=== PATIENT | female | born 1970 | race Caucasian/White ===

== ENCOUNTER → 2019-03-29 | Outpatient (CLI) | payer BC | LOC: M SLEEP HO 11:29 | PROVIDERS: ATTEND Nurse Practitioner Family | DX: R40.0 Somnolence (principal) ==

== ENCOUNTER → 2020-12-07 | Outpatient (REF) | payer BC ==
[2020-12-07 12:56] LABS: CORTISOL AM 18.7 UG/DL (4.3-22.4)
== END ==
LOC: M LAB REF 11:25
PROVIDERS: ATTEND Internal Medicine
DX: R53.83 Other fatigue (principal); L65.9 Nonscarring hair loss, unspecified

== ENCOUNTER → 2020-12-18 | Outpatient (CLI) | payer BC ==
--- NOTE | 2020-12-19 09:19 | REP ---
INDICATION: GOITOR COMPARISON: None. TECHNIQUE: Sales scale and color evaluation of the thyroid gland using the linear high frequency transducer. FINDINGS: The thyroid gland is relatively normal in size and overall parenchymal echotexture. The right lobe measures 4.3 x 1.4 x 1.5 cm and includes 8 x 7 x 4 mm complex upper pole hypoechoic nodule. Left lobe measures 3.3 x 1.1 x 1.1 cm without focal abnormality. Isthmus measures 5 mm in width. IMPRESSION: Solitary 8 mm nonspecific hypoechoic nodule in the right lobe. <Electronically signed by Henry Clark > 12/19/20 0915
== END ==
LOC: M RAD 12:43
PROVIDERS: ATTEND Internal Medicine
DX: E04.1 Nontoxic single thyroid nodule (principal)

== ENCOUNTER → 2022-07-10 | Outpatient (REF) | payer BC | LOC: M PLALAB 16:50 | PROVIDERS: ATTEND Advanced Practice Midwife | DX: Z12.4 Encounter for screening for malignant neoplasm of cervix (principal) | CPT/HCPCS: 87624; G0123 ==

== ENCOUNTER → 2022-07-10 | Outpatient (CLI) | payer BC | LOC: M WHC 13:43 | PROVIDERS: ATTEND Advanced Practice Midwife | DX: Z12.31 Encounter for screening mammogram for malignant neoplasm of breast (principal) ==

== ENCOUNTER → 2023-07-13 | Outpatient (REF) | payer BC | LOC: M LAB REF 17:18 | PROVIDERS: ATTEND Surgery | DX: L72.0 Epidermal cyst (principal) ==

== ENCOUNTER → 2023-12-04 | Outpatient (CLI) | payer BC | LOC: M WHC 08:55 | PROVIDERS: ATTEND Advanced Practice Midwife | DX: Z12.31 Encounter for screening mammogram for malignant neoplasm of breast (principal); R92.323 Mammographic fibroglandular density, bilateral breasts ==

== ENCOUNTER → 2024-10-09 | Outpatient (CLI) | payer BC | LOC: M RAD 11:50 | PROVIDERS: ATTEND Registered Nurse | DX: J06.9 Acute upper respiratory infection, unspecified (principal) ==

== ENCOUNTER → 2024-12-08 | Outpatient (CLI) | payer BC | LOC: M WHC 08:25 | PROVIDERS: ATTEND Advanced Practice Midwife | DX: Z12.31 Encounter for screening mammogram for malignant neoplasm of breast (principal); R92.323 Mammographic fibroglandular density, bilateral breasts ==

== ENCOUNTER → 2024-12-08 | Outpatient (REF) | payer BC ==
[2024-12-10 14:44] LABS: HPV APTIMA Not Detected (Not Detected)
== END ==
LOC: M PLALAB 10:30
PROVIDERS: ATTEND Advanced Practice Midwife
DX: Z12.4 Encounter for screening for malignant neoplasm of cervix (principal)

== ENCOUNTER → 2024-12-19 | Outpatient (REF) | payer BC ==
[2024-12-19 13:17] LABS: CORTISOL AM 22.4 UG/DL (4.3-22.4)
[2024-12-19 13:18] LABS: PERCENT SATURATION 22.5 % (13.2-45.0)
[2024-12-19 13:20] LABS: RHEUMATOID FACTOR QUANT 10.8 IU/ML (<14)
[2024-12-19 13:21] LABS: FERRITIN 58.9 NG/ML (7.3-270.7)
== END ==
LOC: M LAB REF 11:53
PROVIDERS: ATTEND Internal Medicine
DX: M25.50 Pain in unspecified joint (principal); D50.9 Iron deficiency anemia, unspecified; R63.5 Abnormal weight gain; R53.83 Other fatigue

== ENCOUNTER → 2025-02-27 | Outpatient (CLI) | payer BC | LOC: M RAD 10:35 | PROVIDERS: ATTEND Advanced Practice Midwife | DX: E04.1 Nontoxic single thyroid nodule (principal) ==

== ENCOUNTER 2025-08-02 23:33 | Emergency (ER) | payer BC ==
[~2025-08-02] VITALS: Ht 162.6 cm; Wt 94.7 kg
[2025-08-03] MEDS ORDERED: OSELTAMIVIR PHOSPHATE 75 MG CAP PO SCH
[2025-08-03] MEDS ORDERED: CEFDINIR 300 MG CAP PO SCH
[2025-08-03] MEDS ORDERED: DOXYCYCLINE HYCLATE 100 MG TABLET PO SCH
[2025-08-03 01:24] LABS: CK-MB VALUE MASS < 1.0 NG/ML (<3.6)
[2025-08-03 01:26] LABS: ALT/SGPT 22 U/L (7.0-40); AST/SGOT 24 U/L (<34); CALCIUM LEVEL 8.1 MG/DL (8.5-10.1); CARBON DIOXIDE LEVEL 27 MMOL/L (20-31); CHLORIDE LEVEL 104 MMOL/L (98-107); CREATININE FOR GFR 0.73 MG/DL (0.55-1.30); GLOMERULAR FILTRATION RATE > 90.0 (>51); POTASSIUM SERUM 4.1 MMOL/L (3.5-5.1); SODIUM LEVEL 140 MMOL/L (136-145)
[2025-08-03 01:41] LABS: BASO # 0.0 10^3/uL (0.0-0.2); BASO % 0.2 % (0.0-1.0); EOS # 0.3 10^3/uL (0.0-0.5); EOS % 2.9 % (0.0-3.0); LYMPH # 2.2 10^3/uL (1.5-5.0); LYMPH % 21.7 % (24.0-44.0); MONO # 1.3 10^3/uL (0.0-0.8); MONO % 12.8 % (2.0-8.0); NEUTROPHILS # 6.3 10^3/uL (1.5-8.5); NEUTROPHILS % 62.2 % (36.0-66.0); PLATELET COUNT, AUTOMATED 297 10^3/uL (150-450)
[2025-08-03 01:42] LABS: CPK CREATINE PHOSPHOKINASE 50 U/L (34-145)
[2025-08-03 02:18] LABS: D-DIMER QUANT 0.67 ug/mL (<0.5); INR 1.01
[2025-08-03 02:25] LABS: KETONE, URINE AUTO RFX NEGATIVE (NEGATIVE); LEUKOCYTE ESTERASE UR AUTO RFX NEGATIVE (NEGATIVE); MUCUS, URINE RFX LARGE (NEGATIVE); NITRITE, URINE AUTO RFX NEGATIVE (NEGATIVE); RBC, URINE AUTO RFX 1 /HPF (0-3); SQUAM EPITHELIAL CELL UR AURFX 9 /HPF (0-6); WBC, URINE AUTO RFX 2 /HPF (0-3)
[2025-08-03 02:26] LABS: HCG, SERUM QUALITATIVE NEGATIVE (NEGATIVE)
[2025-08-03] MEDS ORDERED: ISOVUE-370 76% 100 ML VIAL As Ordered ONE (03:38)
[2025-08-03 03:59] LABS: CK-MB VALUE MASS < 1.0 NG/ML (<3.6)
[2025-08-03 04:00] LABS: CPK CREATINE PHOSPHOKINASE 44 U/L (34-145)
[2025-08-03] MEDS ORDERED: DOXY-442 PO (07:24)
[2025-08-03] MEDS ORDERED: CEFD300C PO (07:24)
[2025-08-03 07:42] VITALS: BP 129/82; TEMP 98.1; O2SAT 97
[2025-08-03] MEDS: DOXYCYCLINE HYCLATE 100 MG TABLET PO ONE (07:42)
[2025-08-03] MEDS: CEFDINIR 300 MG CAP PO ONE (07:42)
== END 2025-08-03 07:35 | disposition home or self-care (01) ==
LOC: M ED 23:33
DX: J18.9 Pneumonia, unspecified organism (principal); R09.1 Pleurisy
CPT/HCPCS: 71045; 71275; 80048; 80076; 81001; 82550; 82553; 83690; 83880; 84443; 84484; 84703; 85025; 85379; 85610; 85730; 93005; 93041; 93970; 94760; 99285; Q9967